=== PATIENT | male | born 1990 ===

== ENCOUNTER → 2018-07-15 | Outpatient (REF) | payer OTHER ==
[2018-07-15 13:06] LABS: PLATELET COUNT, AUTOMATED 298 K/uL (150-450)
[2018-07-15 13:19] LABS: INR 0.89
== END ==
PROVIDERS: ATTEND Family Medicine
DX: K92.1 Melena (principal)
CPT/HCPCS: 82040; 82247; 82310; 82374; 82435; 82565; 82947; 84075; 84132; 84155; 84295; 84450; 84460; 84520; 85025; 85610